=== PATIENT | female | born 1970 | race Two or more races ===

== ENCOUNTER 2020-06-09 15:12 | Emergency (ER) | payer SELFPAY ==
[~2020-06-09] VITALS: Ht 170.2 cm; Wt 55.0 kg
[2020-06-09] MEDS ORDERED: OLANZAPINE 5MG TABLET ODT PO ONE (16:15)
[2020-06-09 18:57] LABS: BASOPHILS % 0.4 % (0.0-2.0); EOSINOPHILS % 0.4 % (0.0-5.0); HEMATOCRIT. 42.4 % (36.0-48.0); HEMOGLOBIN. 14.4 g/dL (12.0-16.0); LYMPHOCYTES % 22.3 % (20.0-50.0); MEAN CORPUSCULAR HEMOGLOBIN 30.5 pg (28.0-32.0); MEAN CORPUSCULAR VOLUME 89.7 fL (81.0-99.0); MONOCYTES % 10.8 % (2.0-8.0); NEUTROPHILS % 66.1 % (40.0-76.0); PLATELET 328 x1000/uL (130-400); RED BLOOD CELL COUNT 4.73 mill/uL (4.2-5.4); RED CELL DISTRIBUTION WIDTH 13.6 % (11.6-14.6)
[2020-06-09 19:01] LABS: CHLORIDE 106 mEq/L (98-107)
[2020-06-09 19:04] LABS: HCG SCREEN NEGATIVE
[2020-06-09 19:05] LABS: ETHANOL BLOOD < 10 mg/dL
[2020-06-09 21:02] VITALS: BP 111/68
== END 2020-06-09 22:03 | disposition home or self-care (01) ==
LOC: EDBD 15:12 → ER 15:12
DX: R41.82 Altered mental status, unspecified (principal); I49.9 Cardiac arrhythmia, unspecified; Z98.890 Other specified postprocedural states
CPT/HCPCS: 36415; 71045; 80053; 80307; 80320; 80329; 84703; 85025; 93005; 99285; G0480